=== PATIENT | male | born 1980 | race Caucasian/White ===

== ENCOUNTER 2021-03-31 12:23 | Emergency (ER) | payer SELFPAY ==
[2021-03-31] MEDS ORDERED: cefTRIAXone 1 GM in Sodium Chloride 0.9% 50 ML IV ONE (14:24)
--- NOTE | 2021-03-31 14:26 | EDM.PDOC ---
ED HPI GENERAL MEDICAL PROBLEM - General Chief Complaint: Bite:Animal, Insect Stated Complaint: SPIDER BITES BACK OF CALF AREA RED SORE Time Seen by Provider: 03/31/21 14:25 Source of Information: Reports: Patient History Limitations: Reports: No Limitations - History of Present Illness INITIAL COMMENTS - FREE TEXT/NARRATIVE: pt was bite by a spider over the weekend. Yesterday he was seen and placed on doxycyline. Onset: Other ( the area is much larger and very tender. ) Duration: Hour(s): Location: Reports: Lower Extremity, Left Associated Symptoms: Reports: Malaise, Weakness, Other (painful left leg can,t put weight on it. ) Left Leg Pain Score (Numeric/FACES): 8 - Related Data Allergies Allergy/AdvReac Type Severity Reaction Status Date / Time No Known Allergies Allergy Verified 03/31/21 14:23 Home Meds: Home Meds Doxycycline [Vibra-Tabs] 100 mg PO BID 03/31/21 [History] Iron 0 mg PO DAILY 03/31/21 [History] ED ROS GENERAL - Review of Systems Review Of Systems: See Below Constitutional: Reports: No Symptoms HEENT: Reports: No Symptoms Respiratory: Reports: No Symptoms Cardiovascular: Reports: No Symptoms Endocrine: Reports: No Symptoms GI/Abdominal: Reports: No Symptoms Skin: Reports: Other (painful left leg. Pt had a spider bite which became infected ) ED EXAM, ANIMAL BITE - Physical Exam Exam: See Below Text/Narrative:: pt arrived with markd increase in swelling by the left knee. This is very tender. He is on doxycline for 1 day. This is definitely getting worse. Exam Limited By: No Limitations General Appearance: Alert, Anxious, Moderate Distress, Other (pt is very uncomfortable when he walks on the leg. ) Ears: Normal TMs Nose: Normal Inspection Throat/Mouth: Normal Inspection Head: Atraumatic Neck: Normal Inspection Respiratory/Chest: No Respiratory Distress Cardiovascular: Regular Rate, Rhythm GI/Abdominal: Soft, Non-Tender (Male) Exam: Deferred Rectal (Males) Exam: Deferred Back Exam: Normal Inspection Extremities: Other ( Pt has a very red endurated area which is dark in the center. This is a spider bite. ) Neurological: Alert, Oriented, Normal Cognition Course - Vital Signs Last Recorded V/S: Last Vital Signs Temp 36.8 C 03/31/21 14:20 Pulse 85 06/09/21 14:20 Resp 16 03/31/21 14:20 BP 109/73 03/31/21 14:20 Pulse Ox 97 03/31/21 14:20 - Orders/Labs/Meds Orders: Active Orders 24 hr Category Date Time Status COMPREHENSIVE METABOLIC PN,CMP [CHEM] Urgent Lab 03/31/21 14:30 Received Labs: Laboratory Tests 03/31/21 Range/Units 14:30 WBC 9.8 (4.5-11.0) K/uL RBC 4.54 (4.30-5.90) M/uL Hgb 14.3 (12.0-15.0) g/dL Hct 42.3 (40.0-54.0) % MCV 93 (80-98) fL MCH 32 H (27-31) pg MCHC 34 (32-36) % Plt Count 269 (150-400) K/uL Neut % (Auto) 75.4 H (36-66) % Lymph % (Auto) 14.1 L (24-44) % Giles % (Auto) 9.4 H (2-6) % Eos % (Auto) 0.9 L (2-4) % Baso % (Auto) 0.2 (0-1) % Meds: Medications Discontinued Medications Generic Name Dose Route Start Last Admin Trade Name Sandra PRN Reason Stop Dose Admin Ceftriaxone Sodium 1 gm/ 50 mls @ 100 mls/hr 03/31/21 14:24 03/31/21 14:37 Sodium Chloride IV 03/31/21 14:53 100 mls/hr ONETIME ONE Administration - Re-Assessments/Exams Free Text/Narrative Re-Assessment/Exam: 03/31/21 15:02 pt has a normal wbc. He was given rocephen 1 gm iv. He will return tomorrow for antibiotic and a recheck Departure - Departure Time of Disposition: 15:03 Disposition: Home, Self-Care 01 Condition: Fair Clinical Impression: Cellulitis, Spider bite - Discharge Information Referrals: PCP,None [Primary Care Provider] - Forms: ED Department Discharge Care Plan Goals: pt needs to be seen tomorrow by ER Doc. He will rtc for another gram of rocephen. He will continue the doxycline, off the leg as much as possible, crutches, Moist warm packs to the area, followed by a cool pack, pt will have follow up visit in ER, Ubable to get in with Dr Dunham until next week Sepsis Event Note (ED) - Evaluation Sepsis Screening Result: No Definite Risk - Focused Exam Vital Signs: Vital Signs Temp Pulse Resp BP Pulse Ox 03/31/21 14:20 36.8 C 85 16 109/73 97 03/31/21 14:15 36.8 C 85 16 109/73 97 - My Orders Last 24 Hours: My Active Orders 03/31/21 14:30 COMPREHENSIVE METABOLIC PN,CMP [CHEM] Urgent - Assessment/Plan Last 24 Hours: My Active Orders 03/31/21 14:30 COMPREHENSIVE METABOLIC PN,CMP [CHEM] Urgent
== END 2021-03-31 15:32 | disposition home or self-care (01) ==
LOC: JP.ED 12:23
DX: T63.301A Toxic effect of unspecified spider venom, accidental (unintentional), initial encounter (principal); L03.116 Cellulitis of left lower limb
CPT/HCPCS: 36415; 80053; 85025; 96365; 99283; J0696

== ENCOUNTER 2021-04-01 16:15 | Inpatient (IN) | payer SELFPAY ==
[2021-04-01] MEDS ORDERED: Acetaminophen 325 MG Tab PO PRN (16:30)
[2021-04-01] MEDS ORDERED: Promethazine 25 MG/ML SDV IM PRN (16:31)
[2021-04-01] MEDS ORDERED: Benzocaine/Cetylpyridinium/Menthol Lozenge MUCMEM PRN (16:31)
[2021-04-01] MEDS ORDERED: Docusate Sodium 100 MG Cap PO PRN (16:32)
[2021-04-01] MEDS ORDERED: Sodium Chloride 0.9% 1,000 ML IV SCH (16:45)
[2021-04-01] MEDS: Piperacillin/Tazobactam/Dext 3.375 GM in Premix Bag 1 BAG IV SCH ×2 (17:20→23:05)
[2021-04-01] MEDS: Acetaminophen/HYDROcodone 325-5 MG Tab PO PRN ×2 (17:58→22:04)
[2021-04-01] MEDS ORDERED: Vancomycin 1.8 GM in Sodium Chloride 0.9% 250 ML IV ONE (18:00)
[2021-04-01 18:01] LABS: CORONAVIRUS COVID-19 NAA NEGATIVE (NEGATIVE)
[2021-04-02] MEDS: Acetaminophen/HYDROcodone 325-5 MG Tab PO PRN ×3 (02:17→12:56)
[2021-04-02] MEDS: Vancomycin 1.3 GM in Sodium Chloride 0.9% 250 ML IV SCH ×2 (02:18→12:42)
[2021-04-02] MEDS: Piperacillin/Tazobactam/Dext 3.375 GM in Premix Bag 1 BAG IV SCH ×3 (05:44→16:32)
[2021-04-02] MEDS ORDERED: Bupivacaine 0.5% 50 ML MDV ONE (07:11)
[2021-04-02] MEDS ORDERED: Bacitracin Oint 1 GM U/D Packet ONE (07:11)
[2021-04-02] MEDS ORDERED: Lidocaine 1% with EPINEPHrine 1:100,000 50 ML MDV ONE (07:11)
[2021-04-02] MEDS ORDERED: fentaNYL 100 MCG/2 ML SDV ONE ×2 (10:14→10:58)
[2021-04-02] MEDS ORDERED: Midazolam 1 MG/ML 2 ML SDV ONE ×2 (10:14→10:56)
[2021-04-02] MEDS ORDERED: Propofol 200 MG/20 ML SDV ONE ×2 (10:15→11:15)
[2021-04-02] MEDS ORDERED: Lactated Ringers 1,000 ML ONE (11:09)
[2021-04-02] MEDS ORDERED: Ertapenem 1 GM in Sodium Chloride 0.9% 100 ML IV ONE (13:00)
--- NOTE | 2021-04-02 14:49 | PN ---
DATE OF SERVICE: 04/02/2021 SUBJECTIVE: The patient is doing well. Pain is well controlled. No nausea, vomiting, shortness of breath, or chest pain. OBJECTIVE: VITAL SIGNS: Stable. CARDIOVASCULAR: Regular rhythm and rate. SKIN: Cellulitis has significantly improved with excellent response to IV antibiotics. ASSESSMENT AND PLAN: To the OR for abscess drainage. Jonathan Dunham MD /[id number]
--- NOTE | 2021-04-02 15:38 | OR ---
DATE OF PROCEDURE: 04/02/2021 SURGEON: Jonathan Dunham MD PROCEDURE: Incision and drainage of abscess, left leg. FINDINGS: 1. Small amount of purulent material. 2. Definite significant improvement of cellulitis overnight. COMPLICATION: None. MANAGER INFUSION: None. ANESTHETIC: MAC/local. RISKS: Risks, benefits, alternatives, and limitations, including, but not limited to infection, bleeding, and sepsis were explained to the patient who wished to proceed. PROCEDURE IN DETAIL: The patient was placed in supine position. Leg was prepped and draped. The ultrasound had previously marked the area. This was anesthetized with 1% lidocaine. A chapis was created in the skin and a small amount of purulent material was noted. This was irrigated thoroughly. This was packed with 1/4 inch iodoform gauze. The patient tolerated the procedure well. Jonathan Dunham MD /[id number]
[2021-04-02] MEDS ORDERED: Acetaminophen/HYDROcodone 325-5 MG Tab PO STA (16:44)
--- NOTE | 2021-04-04 13:33 | DISCH ---
SUMMARY OF HOSPITAL COURSE: A pleasant 40-year-old male who had cellulitis and an abscess of his leg. He did very well and responded very strongly to antibiotics. He underwent an incision and drainage. The cellulitis had decreased by approximately 80%. He will be sent home on 7 days of IV antibiotics. FOLLOWUP: With Surgery in 7 to 14 days. ACTIVITY: No lifting greater than 30 pounds x30 days. DISCHARGE MEDICATIONS: Please see MAR but include [place] for pain. /[id number]
== END 2021-04-02 17:40 | disposition home or self-care (01) | DRG 603 ==
LOC: JP.MS 16:15
PROVIDERS: ADMIT Surgery; ATTEND Surgery
PROC: 0H9LXZZ Drainage of Left Lower Leg Skin, External Approach (ICD-10-PCS; principal; 2021-04-02)
DX: L03.116 Cellulitis of left lower limb (principal); L02.416 Cutaneous abscess of left lower limb; Z20.822 Contact with and (suspected) exposure to COVID-19
CPT/HCPCS: 0241U; A9270-GY; J1335; J2250; J2543; J2704; J3010; J3370; J3490; J7030; J7050; J7120